=== PATIENT | female | born 1940 | race Caucasian/White ===

== ENCOUNTER → 2023-04-30 13:25 | Outpatient (REF) | payer MEDICARE, SELFPAY ==
[2023-04-30 14:57] LABS: Hematocrit 42.1 % (37.0-47.0); Hemoglobin 14.3 g/dL (12.0-16.0); Mean Corpuscular Hgb 31.2 pg (27.0-31.0); Mean Corpuscular Volume 91.9 fL (81.0-99.0); Platelet Count 167 10^3/uL (130-400); Red Blood Cell Count 4.58 10^6/uL (4.20-5.40); Red Cell Dist. Width 12.6 % (11.5-14.5)
[2023-04-30 15:17] LABS: ALT (SGPT) 46 U/L (0-35); AST (SGOT) 40 U/L (14-36); Albumin 3.9 g/dl (3.5-5.0); Alkaline Phosphatase 64 U/L (38-126); Blood Urea Nitrogen 15 mg/dl (7-17); Carbon Dioxide 27 mmol/L (22-30); Chloride 100 mmol/L (98-107); Glucose 91 mg/dl (70-99); Potassium 3.9 mmol/L (3.5-5.1); Sodium 137 mmol/L (135-145); Total Protein 6.7 g/dl (6.3-8.2); eGFR > 60.00
== END ==
LOC: SDSPAT 13:25
PROVIDERS: ATTENDING PHYSICIAN Orthopaedic Surgery Orthopaedic Surgery of the Spine; FAMILY PHYSICIAN Family Medicine; OTHER PHYSICIAN Physical Medicine & Rehabilitation Pain Medicine
DX: Z01.818 Encounter for other preprocedural examination (principal)
CPT/HCPCS: 36415; 80053; 85027; 87070; 93005

== ENCOUNTER 2023-05-23 06:24 | Day surgery (SDC) | payer MEDICARE, SELFPAY ==
--- NOTE | 2023-04-19 11:01 | CM ---
Patient is scheduled for lumbar spine surgery on 05/23/23. Spoke with patient prior to surgery via telephone. Introduced role of the Orthopedic Navigator. Patient reports that she lives alone in a bi level home. There are no steps to enter and then
five steps to all living areas. She currently functions independently. She has two rolling walkers and a cane. She has never had VN services. PCP is Latoya Reyes.
Discussed orthopedic program, post surgical plans and tentative plan for patient to return home when directed by surgeon. Patient is in agreement with tentative plan and states that one of her daughters will stay with her when she first goes home.
Per surgical reservation sheet from Dr. Cantrell's office, patient does not need a brace.
Plan: Orthopedic Navigator will remain available to assist with the care of patient and will reassess discharge needs after surgery.
[2023-04-30 13:57] VITALS: BMI 27.0
[2023-04-30 15:07] VITALS: BMI 27.0
[2023-05-23] VITALS (20 sets, daily range): BP systolic 112–150; BP diastolic 48–90
[2023-05-23] MEDS: NORMOSOL-R 1000 IV ×3 (09:55→18:10)
[2023-05-23] MEDS: CELEBREX 200 MG PO (10:01)
[2023-05-23] MEDS: LYRICA 150 MG PO (10:01)
[2023-05-23] MEDS: SKELAXIN 800 MG PO (10:02)
[2023-05-23] MEDS: TYLENOL 1000 MG PO ×2 (10:02→16:06)
[2023-05-23] MEDS: DILAUDID 0.25 MG IV ×2 (13:45→14:29)
--- NOTE | 2023-05-23 17:54 | PTCARENOTE ---
Patient received from [facility] in stretcher, patient transferred to bed; Surgical site assessed; Patient and family member oriented to unit; Call patel within reach; Bed in lowest position, wheels locked; Safety maintained; Assessment ongoing
[2023-05-23] MEDS: ULTRAM 50 MG PO (18:26)
--- NOTE | 2023-05-23 18:43 | PTCARENOTE ---
Patient allowed to ambulate without brace per Dr. Cantrell
[2023-05-23] MEDS: COLACE 100 MG PO (19:14)
[2023-05-23] MEDS: ROXICODONE 5 MG PO (19:14)
[2023-05-23] MEDS: ANCEF 5 IV (19:15)
[2023-05-23] MEDS: SENOKOT 17.1999999999999993 MG PO (19:15)
[2023-05-23] MEDS: EVISTA 60 MG PO (21:16)
[2023-05-23] MEDS: DESYREL 50 MG PO (21:16)
[2023-05-23] MEDS: LYRICA 75 MG PO (21:16)
[2023-05-24] MEDS: TYLENOL 1000 MG PO ×2 (00:42→08:52)
[2023-05-24] MEDS: ULTRAM 50 MG PO ×3 (00:42→11:43)
[2023-05-24 03:25] VITALS: BP 129/70
[2023-05-24] MEDS: ANCEF 5 IV (05:00)
[2023-05-24] MEDS: NORMOSOL-R 1000 IV (05:00)
[2023-05-24 06:07] LABS: Hematocrit 36.6 % (37.0-47.0); Hemoglobin 12.6 g/dL (12.0-16.0)
[2023-05-24 06:39] LABS: Blood Urea Nitrogen 17 mg/dl (7-17); Calcium 8.2 mg/dl (8.4-10.2); Carbon Dioxide 27 mmol/L (22-30); Chloride 99 mmol/L (98-107); Estimated Creatinine Clearance 52 ml/min; Glucose 129 mg/dl (70-99); Potassium 4.2 mmol/L (3.5-5.1); Sodium 134 mmol/L (135-145); eGFR > 60.00
[2023-05-24 07:08] VITALS: BP 155/69
--- NOTE | 2023-05-24 08:45 | CM ---
Addendum entered by Leslie Patton 05/24/23 11:50:
Patient did well with therapy. She and her daughter have no concerns about discharge plans.
Original Note:
Reviewed chart and held rounds with PT, OT and RN. Patient had planned lumbar spine surgery with Dr. Cantrell on 05/23. Met with patient at bedside. Confirmed information previously obtained for assessment and discussed discharge plans. Patient continues
to plan to return home at discharge. Her daughter will be staying with her. Reviewed that she will work with PT/OT this morning and that discharge needs will depend on her functional status. However, no needs currently identified.
Patient has two rolling walkers and a cane at home.
Patient will use [facility] pharmacy for discharge prescriptions.
[2023-05-24] MEDS: COLACE 100 MG PO (08:52)
[2023-05-24] MEDS: LYRICA 75 MG PO (08:52)
[2023-05-24] MEDS: SENOKOT 17.1999999999999993 MG PO (08:52)
[2023-05-24 10:05] VITALS: BP 98/68; PULSE 98; O2SAT 94
--- NOTE | 2023-05-24 10:28 | W.PN.ORTHO ---
Today's Communication / Plan
-
d/c
Assessment
.
Distal Motor Intact: Yes
Dressing:
Clean, dry and intact.
Plan
.
Surgery / Date: R L3-[address] maggie-[address] Cantrell 05/23/23
Activity:
Out of bed.
PT/OT
Discharge Plan: Home
Subjective
.
.:
Patient resting comfortably.
Vital Signs and Labs
.
Vital Signs and Labs:
Lab Results
05/24/23 04:59
05/24/23 04:59
Temp Pulse Resp BP Pulse Ox
97.7 F 88 16 155/69 94
05/24/23 07:08 05/24/23 07:08 05/24/23 07:08 05/24/23 07:08 05/24/23 07:08
Physical Exam
-
HEENT: No pallor, cyanosis, or jaundice. Throat clear.
NECK: Supple. No JVD.
RESPIRATORY: Lungs clear to auscultation.
CVS: S1, S2 normal. RRR.� No murmur, rub or gallop.
ABDOMEN: Soft, non-tender. No distension. BS+/normal.
EXTREMITIES: strength equal, no calf pain with palpation
[employer]: AOx3. No focal deficits. camp tender grossly intact
--- NOTE | 2023-05-24 10:35 | W.DS.TRANS ---
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
-
Discharge Instructions:
Sleep Apnea Risk Low
Discharge Diagnosis/Procedures R L3-[address] Cantrell 05/23/23
Diet As tolerated
Activity No strenuous activity
Driving Restrictions No driving
Instructions:
Stand-Alone Forms: [facility] Lumbar D/C Inst.
Changes to Home Medications: Yes
Discharge Medications:
DC Medications w/original date entered in [employer]
amlodipine 2.5 mg tablet 2.5 mg PO HS 04/26/23
magnesium 200 mg tablet 400 mg PO HS 04/26/23
multivitamin 1 tab PO HS 04/26/23
raloxifene 60 mg tablet 60 mg PO HS 04/26/23
trazodone 50 mg tablet 50 mg PO HS 04/26/23
Saccharomyces boulardii 250 mg capsule (Florastor) 250 mg PO BID #1 cap 05/24/23
acetaminophen 325 mg capsule (Tylenol) 650 mg PO QID #2 caps 05/24/23
cephalexin 500 mg capsule 500 mg PO QID infection prevention #20 caps 05/24/23
dexamethasone 4 mg tablet 4 mg PO BID inflammation #6 tabs 05/24/23
docusate sodium 100 mg capsule (Colace) 100 mg PO BID stool softner #1 cap 05/24/23
gabapentin 300 mg capsule 300 mg PO HS sleep/pain #10 caps 05/24/23
magnesium hydroxide 400 mg/5 mL oral suspension (Milk of Magnesia) 30 ml PO HS PRN Constipation #1 mL 05/24/23
oxycodone 5 mg tablet 5 - 10 mg PO Q6HPRN PRN 1 tab moderate-2 tabs severe pain #30 tabs 05/24/23
sennosides 8.6 mg tablet (Senokot) 17.2 mg PO BID laxative #2 tabs 05/24/23
Home Medication Changes
cephalexin 500 mg capsule 500 mg PO QID� infection prevention #20 caps 05/24/23�
dexamethasone 4 mg tablet 4 mg PO BID inflammation #6 tabs 05/24/23�
gabapentin 300 mg capsule 300 mg PO HS sleep/pain #10 caps 05/24/23�
oxycodone 5 mg tablet 5 - 10 mg PO Q6HPRN PRN 1 tab moderate-2 tabs severe pain #30 tabs 05/24/23�
Pending Results: No
[2023-05-24 11:28] VITALS: BP 131/59
[2023-05-24 11:30] VITALS: BP 131/59; PULSE 82; O2SAT 94
== END 2023-05-24 12:54 | disposition home or self-care (01) ==
LOC: SDS 06:24
PROVIDERS: Physician Assistant; ATTENDING PHYSICIAN Orthopaedic Surgery Orthopaedic Surgery of the Spine; FAMILY PHYSICIAN Family Medicine
DX: M48.061 Spinal stenosis, lumbar region without neurogenic claudication (principal)
CPT/HCPCS: 63030; 72020; 80048; 85014; 85018; 97162; 97166

== ENCOUNTER → 2024-01-16 09:05 | Outpatient (REF) | payer MEDICARE, SELFPAY | LOC: HWRAD 09:05 | PROVIDERS: ATTENDING PHYSICIAN Family Medicine | DX: M85.89 Other specified disorders of bone density and structure, multiple sites (principal); Z12.31 Encounter for screening mammogram for malignant neoplasm of breast | CPT/HCPCS: 77063; 77067; 77080 ==

== ENCOUNTER → 2024-02-07 08:36 | Outpatient (REF) | payer MEDICARE, SELFPAY | LOC: EMG 08:36 | PROVIDERS: ATTENDING PHYSICIAN Family Medicine | DX: R20.2 Paresthesia of skin (principal); R20.0 Anesthesia of skin | CPT/HCPCS: 95886; 95909 ==

== ENCOUNTER 2024-04-25 09:31 | Emergency (ER) | payer MEDICARE, SELFPAY ==
[2024-04-25 09:53] VITALS: BP 146/65
--- NOTE | 2024-04-25 09:56 | ED.GENMED ---
ED Provider Triage
<Castillo Mcneill PA-C - Last Filed: 04/25/24 09:57>
-
Patient seen by provider in Triage?: Seen in Triage
Attestation: A medical screening examination has been initiated by a qualified medical provider. Based on the assessment performed at this time, it has been determined that an emergent medical condition may exist and the patient has been informed
that further medical evaluation and possible additional diagnostic testing may be needed.
HPI: 83-year-old female presents for abrupt onset of nausea vomiting diarrhea and generalized abdominal pain beginning last night. No fevers. Prior abdominal surgery includes and ovarian cystectomy.
GENERAL: Alert , in no apparent distress
EYE: No visual abnormalities.
NECK: Trachea midline
ENT: No visible abnormalities.
LUNGS: No acute respiratory distress
NEUROLOGICAL: Alert and oriented
SKIN: Skin intact. No visible changes.
MUSCULOSKELETAL: Moving extremities normally
PSYCH: Normal and appropriate interaction.
This is a medical evaluation conducted in person to initiate diagnostic evaluation and provide initial therapeutics. Please see further documentation by the treating clinician.
History of Present Illness
<Castillo Mcneill PA-C - Last Filed: 04/25/24 09:57>
General
Chief Complaint: Abdominal Symptoms
Time Seen by Provider: 04/25/24 11:07
<Aida Pritchard RETAIL BUSINESS DEVELOPMENT MANAGER - Last Filed: 04/25/24 18:18>
General
Source: patient
Exam Limitations: none
Nursing documentation reviewed up to this point in time: agreed with
History of Present Illness
History of Present Illness:
83 yo female w h/o HTN, HLD, states she started vomiting about 8 p.m. last night after eating shrimp and paraguayan fries. She also had several non bloody diarrheal stools. She denies fever/chills. Last emesis 8:30 a.m., last diarrhea 2 hours ago.
Past History
<Castillo Mcneill PA-C - Last Filed: 04/25/24 09:57>
Past History
ED Past Medical History: Other (Osteopenia takes Raloxafine)
ED Past Surgical History: Gynecological
Social History
Tobacco: Non-smoker
Alcohol: Occasional
Personal:
Living: with family
Employment: Retired
<Aida Pritchard, RETAIL BUSINESS DEVELOPMENT MANAGER - Last Filed: 04/25/24 18:18>
Past History
ED Past Medical History: HTN (Takes amlodipine)
Review of Systems
<Aida Pritchard, RETAIL BUSINESS DEVELOPMENT MANAGER - Last Filed: 04/25/24 18:18>
Review of Systems
Allergies reviewed?: Yes
All Other Systems: ROS reviewed and negative except as documented in HPI and ROS
Constitutional: Denies fever or fatigue
Respiratory: Denies trouble breathing
Cardiac: Denies chest pain or syncope
ABD/GI: Reports abdominal pain, nausea, vomiting and diarrhea; Denies bloody stools or black stools
: Denies dysuria, frequency or difficulty voiding
Musculoskeletal: Reports no symptoms
Skin: Reports no symptoms
Neurological: Reports no symptoms
Phy Exam
<Aida Pritchard, RETAIL BUSINESS DEVELOPMENT MANAGER - Last Filed: 04/25/24 18:18>
Physical Exam
Physical Exam:
GENERAL: No acute distress. A&Ox3.
CONSTITUTIONAL: Afebrile.
EYES: clear, conjunctivae normal
ENMT: moist mucus membranes, Pharynx nl
RESPIRATORY: Regular respirations, nonlabored, lungs clear.
CARDIOVASCULAR: Regular rate and rhythm, no murmurs, no rubs.
GI: Soft, mildly tender across lower abdomen,normal BS
MUSCULOSKELETAL: Moves with ease. Well perfused.
SKIN: Warm, dry, pink
PSYCH: Normal mood and affect. Well kept, interactive and appropriate
NEUROLOGIC: Awake, alert and oriented. No focal neurological deficits
Course
<Castillo Mcneill PA-C - Last Filed: 04/25/24 09:57>
Orders/Labs/Results
Orders:
Orders
04/25/24 09:56
Ondansetron Orally Disint [Zofran Odt (Orally Disintegrating)] 4 mg PO NOW STA
04/25/24 10:01
COVID-19 Antigen Urgent
Source: Nasal Swab
Complete Blood Count/With Diff Urgent
Comprehensive Metabolic Panel Urgent
Lipase Urgent
Influenza A+B Rapid Molecular Urgent
VERITO Source: Nasal Swab
Specimen Description:
04/25/24 10:02
Ondansetron Orally Disint [Zofran Odt (Orally Disintegrating)] 4 mg .ROUTE .STK-MED ONE
04/25/24 11:31
CT Abd/Pel (IV only)-DH only Urgent
Comment:
Reason For Exam: pain across lower abd, n/v/d
04/25/24 13:31
Ondansetron Injectable [Zofran] 4 mg .ROUTE .STK-MED ONE
04/25/24 13:34
Ondansetron Injectable [Zofran] 4 mg IV NOW STA
Abnormal Lab Results
04/25/24
10:01
WBC 15.6 H 10^3/uL
(4.8-10.8)
Abs Immat Gran (auto) 0.1 H 10^3/uL
(0-0.05)
Absolute Neuts (auto) 14.7 H 10^3/uL
(1.4-6.5)
Absolute Lymphs (auto) 0.3 L 10^3/uL
(1.2-3.4)
Neutrophils % 94.2 H %
(42.2-75.2)
Lymphocytes % 1.9 L %
(20.5-51.1)
BUN 22 H mg/dl
(7-17)
Glucose 177 H mg/dl
(70-99)
Total Bilirubin 1.6 H mg/dl
(0.2-1.3)
AST 38 H U/L
(14-36)
ALT 38 H U/L
(0-35)
04/25/24 10:01
04/25/24 10:01
Vital Signs
Initial and Last Documented VS:
Initial Vital Signs
Temp Pulse Resp BP Pulse Ox
99 F 103 20 146/65 96
04/25/24 09:53 04/25/24 09:53 04/25/24 09:53 04/25/24 09:53 04/25/24 09:53
Last Documented Vital Signs
Temp Pulse Resp BP Pulse Ox
99 F 87 16 146/60 98
04/25/24 09:53 04/25/24 13:38 04/25/24 13:38 04/25/24 13:38 04/25/24 13:38
<Aida Pritchard, RETAIL BUSINESS DEVELOPMENT MANAGER - Last Filed: 04/25/24 18:18>
Orders/Labs/Results
Orders:
Orders
04/25/24 09:56
Ondansetron Orally Disint [Zofran Odt (Orally Disintegrating)] 4 mg PO NOW STA
04/25/24 10:01
COVID-19 Antigen Urgent
Source: Nasal Swab
Complete Blood Count/With Diff Urgent
Comprehensive Metabolic Panel Urgent
Lipase Urgent
Influenza A+B Rapid Molecular Urgent
VERITO Source: Nasal Swab
Specimen Description:
04/25/24 10:02
Ondansetron Orally Disint [Zofran Odt (Orally Disintegrating)] 4 mg .ROUTE .STK-MED ONE
04/25/24 11:31
CT Abd/Pel (IV only)-DH only Urgent
Comment:
Reason For Exam: pain across lower abd, n/v/d
04/25/24 13:31
Ondansetron Injectable [Zofran] 4 mg .ROUTE .STK-MED ONE
04/25/24 13:34
Ondansetron Injectable [Zofran] 4 mg IV NOW STA
Abnormal Lab Results
04/25/24
10:01
WBC 15.6 H 10^3/uL
(4.8-10.8)
Abs Immat Gran (auto) 0.1 H 10^3/uL
(0-0.05)
Absolute Neuts (auto) 14.7 H 10^3/uL
(1.4-6.5)
Absolute Lymphs (auto) 0.3 L 10^3/uL
(1.2-3.4)
Neutrophils % 94.2 H %
(42.2-75.2)
Lymphocytes % 1.9 L %
(20.5-51.1)
BUN 22 H mg/dl
(7-17)
Glucose 177 H mg/dl
(70-99)
Total Bilirubin 1.6 H mg/dl
(0.2-1.3)
AST 38 H U/L
(14-36)
ALT 38 H U/L
(0-35)
04/25/24 10:01
04/25/24 10:01
Vital Signs
Initial and Last Documented VS:
Initial Vital Signs
Temp Pulse Resp BP Pulse Ox
99 F 103 20 146/65 96
04/25/24 09:53 04/25/24 09:53 04/25/24 09:53 04/25/24 09:53 04/25/24 09:53
Last Documented Vital Signs
Temp Pulse Resp BP Pulse Ox
99 F 87 16 146/60 98
04/25/24 09:53 04/25/24 13:38 04/25/24 13:38 04/25/24 13:38 04/25/24 13:38
<Aida Pritchard RETAIL BUSINESS DEVELOPMENT MANAGER - Last Filed: 04/25/24 18:18>
MDM/Problems Addressed
Differential Diagnosis Includes:
Viral gastroenteritis, colitis, food poisoning
MDM/Problems Addressed:
83 yo female w h/o HTN, HLD, states she started vomiting about 8 p.m. last night after eating shrimp and paraguayan fries. She also had several non bloody diarrheal stools. She denies fever/chills. Last emesis 8:30 a.m., last diarrhea 2 hours ago.
CBC: WBC 15.6 most likely reactive to vomiting
CMP BUN and liver enzymes mildly elevated, most consistent with mild dehydration
Lipase WNL
Covid neg
Flu neg
CT abd/pelvis radiology report read: IMPRESSION:
Cholelithiasis. No findings to suggest biliary tract dilatation.
Limited evaluation of intestinal tract without oral contrast, without intestinal obstruction or free air. Some nondilated fluid-filled loops of small bowel with some questionable areas of small bowel wall enhancement. Small bowel enteritis cannot be
excluded.
Prior appendectomy.
2:15 p.m. No vomiting or diarrhea since arrival
Feeling better
Rx for Zofran sent to her pharmacy
<Aida Pritchard RETAIL BUSINESS DEVELOPMENT MANAGER - Last Filed: 04/25/24 18:18>
*Critical Care Note
Total Time (30-74mins, 75-104mins- exclusive of procedures): Not Applicable
ED Attending Note
<Castillo Mcneill PA-C - Last Filed: 04/25/24 09:57>
-
Portions of this chart may have been created with voice recognition software.� Occasional wrong word or��sound alike� substitutions may have occurred due to the inherent limitations of voice recognition software.
Discharge Plan
Departure
Patient Disposition: Home (Routine Discharge)
Date of Disposition: 04/25/24
Time of Disposition: 14:09
Patient with high blood pressure during this ER visit?: No
Condition: Good
Discharge Problem:
Gastroenteritis
Instructions: Food poisoning, Viral gastroenteritis in adults
Prescriptions:
New
ondansetron 4 mg tablet,disintegrating
4 mg PO Q8H PRN (Reason: nausea and vomiting) 4 Days Qty: 14 0RF
No Action
multivitamin Tablet
1 tab PO HS
trazodone 50 mg Tablet
50 mg PO HS
raloxifene 60 mg Tablet
60 mg PO HS
magnesium 200 mg Tablet
400 mg PO HS
amlodipine 2.5 mg tablet
2.5 mg PO HS
cephalexin [cephalexin] 500 mg capsule
500 mg PO QID Qty: 20 0RF
docusate sodium [Colace] 100 mg capsule
100 mg PO BID Qty: 1 0RF
dexamethasone 4 mg tablet
4 mg PO BID Qty: 6 0RF
Rx Instructions:
take with food
post-op use only
Saccharomyces boulardii [Florastor] 250 mg capsule
250 mg PO BID Qty: 1 0RF
magnesium hydroxide [Milk of Magnesia] 400 mg/5 mL suspension
30 ml PO HS PRN (Reason: Constipation) Qty: 1 0RF
gabapentin 300 mg capsule
300 mg PO HS Qty: 10 0RF
sennosides [Senokot] 8.6 mg tablet
17.2 mg PO BID Qty: 2 0RF
oxycodone 5 mg tablet
5 - 10 mg PO Q6HPRN PRN (Reason: 1 tab moderate-2 tabs severe pain) Qty: 30 0RF
Rx Instructions:
Dx surgery
ongoing therapy
Post-op use
acetaminophen [Tylenol] 325 mg capsule
650 mg PO QID Qty: 2 0RF
Referrals:
Latoya Reyes MD [Family Provider] - As needed
Activity Restrictions/Additional Instructions:
As we discussed, your workup here today is most consistent with gastroenteritis. This may be viral or from something you ate.
I sent a prescription to your pharmacy for Zofran to use if needed for nausea and vomiting
See your doctor in 4-5 days if you are not 100% improved within the next 3 days.
Interventions
Interventions:
*Risk Screen - Suicide Last Done: 04/25/24 09:53
*General Assessment Last Done: 04/25/24 09:53
*Neglect/Abuse Screening Last Done: 04/25/24 09:53
ED- Fall Risk Assessment Last Done: 04/25/24 11:32
*ED COVID-19 Vaccine History Last Done: 04/25/24 11:32
*Nursing Disposition Last Done: 04/25/24 15:02
FE-[id number] Assessment Last Done: 04/25/24 11:32
Discharge Date and Time
Discharge Date/Time: 04/25/24 15:03
Print Language: INDONESIAN
[2024-04-25] MEDS: ZOFRAN ODT (ORALLY DISINTEGRATING) 4 MG PO (10:03)
[2024-04-25 10:09] LABS: % Basophils 0.3 % (0-2); % Immature Granulocytes 0.5 % (0-0.5); % Lymphocytes 1.9 % (20.5-51.1); % Monocytes 3.1 % (1.7-9.3); % Neutrophils 94.2 % (42.2-75.2); Absolute Immature Granulocytes 0.1 10^3/uL (0-0.05); Absolute Lymphocytes 0.3 10^3/uL (1.2-3.4); Absolute Monocytes 0.5 10^3/uL (0.1-0.6); Absolute Neutrophils 14.7 10^3/uL (1.4-6.5); Hematocrit 44.1 % (37.0-47.0); Hemoglobin 14.9 g/dL (12.0-16.0); Mean Corp Hgb Conc. 33.8 g/dL (33.0-37.0); Mean Corpuscular Hgb 30.2 pg (27.0-31.0); Mean Corpuscular Volume 89.3 fL (81.0-99.0); Mean Platelet Volume 10.3 fL (7.4-10.4); Nucleated Red Blood Cells % 0 %; Platelet Count 158 10^3/uL (130-400); Red Blood Cell Count 4.94 10^6/uL (4.20-5.40); Red Cell Dist. Width 13.3 % (11.5-14.5); White Blood Cell Count 15.6 10^3/uL (4.8-10.8)
[2024-04-25 10:23] LABS: ALT (SGPT) 38 U/L (0-35); AST (SGOT) 38 U/L (14-36); Albumin 4.6 g/dl (3.5-5.0); Alkaline Phosphatase 69 U/L (38-126); Blood Urea Nitrogen 22 mg/dl (7-17); Calcium 8.4 mg/dl (8.4-10.2); Carbon Dioxide 26 mmol/L (22-30); Chloride 102 mmol/L (98-107); Glucose 177 mg/dl (70-99); Lipase 56 U/L (23-300); Potassium 4.2 mmol/L (3.5-5.1); Sodium 140 mmol/L (135-145); Total Bilirubin 1.6 mg/dl (0.2-1.3); Total Protein 7.4 g/dl (6.3-8.2); eGFR > 60.00
[2024-04-25 10:32] LABS: COVID-19 Antigen Negative (Negative)
[2024-04-25 11:31] VITALS: BMI 25.7
[2024-04-25 11:33] VITALS: BP 151/63
[2024-04-25] MEDS: ZOFRAN 4 MG IV (13:35)
[2024-04-25 13:38] VITALS: BP 146/60
== END 2024-04-25 15:03 | disposition home or self-care (01) ==
LOC: EMR 09:31
PROVIDERS: Physician Assistant; EMERGENCY PHYSICIAN Emergency Medicine; FAMILY PHYSICIAN Family Medicine
DX: K52.9 Noninfective gastroenteritis and colitis, unspecified (principal); I10 Essential (primary) hypertension; E78.00 Pure hypercholesterolemia, unspecified; M85.80 Other specified disorders of bone density and structure, unspecified site
CPT/HCPCS: 99284; 96374; 74177; 80053; 83690; 85025; 87502; 87811; Q9967